=== PATIENT | female | born 1995 | race Caucasian/White ===

== ENCOUNTER 2017-01-05 19:37 | Emergency (ER) | payer SELFPAY ==
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
== END 2017-01-05 20:30 | disposition home or self-care (01) ==
LOC: ER 19:37
DX: S16.1XXA Strain of muscle, fascia and tendon at neck level, initial encounter (principal); Y04.0XXA Assault by unarmed brawl or fight, initial encounter

== ENCOUNTER 2017-01-27 12:18 | Emergency (ER) | payer SELFPAY ==
--- NOTE | 2017-02-06 19:40 | ER ---
ADMIT: 01/27/2017 RM/LOC: ER [facility] MR#: [id number] [facility] [address] [place], [place] [address] LEONARDO MARTINEZ [address] [place] [id number] Emergency Room Report SEX: F AGE: 21 : 1995 DATE: 01/27/2017 HISTORY OF PRESENT ILLNESS: The patient is a 21-year-old, presents to emergency room with vaginal cramping, denies bleeding. She has some dysuria continues in the ER. She says she is about 5 weeks' . She has an appointment with Dr. Damon on . Her last menstrual period was 10/23/2016. REVIEW OF SYSTEMS: Negative. PAST MEDICAL HISTORY: She is a 3, para 1. PAST SURGICAL HISTORY: No surgeries. She did have a vaginal delivery. PHYSICAL EXAMINATION: ABDOMEN: Pretty taut abdomen. VITAL SIGNS: Pretty normal. She measures fundal height about 12 to 14 weeks. GENERAL: She is mildly anxious, but does not seem to be in any acute distress. No bimanual exam was conducted. HEENT: Normal inspection. NECK: Supple. RESPIRATION: No distress. EXTREMITIES: Nontender. SKIN: Good color, oriented x4. Mood and affect are appropriate. DIAGNOSTIC DATA: UA normal. Beta HCG in the 46,423, and her heart tones are 156. CLINICAL IMPRESSION: Discomfort of intrauterine . Advised to follow up with Dr. Damon as per her appointment on . Take prenatals. Keep hydrated. LENI Rodgers / Sharad Delgado MD / patl JOB #: [id number] CC: Sharad Delgado MD, Attending Physician Ashish Joseph, Family Physician
== END 2017-01-27 15:05 | disposition home or self-care (01) ==
LOC: ER 12:18
DX: O99.89 Other specified diseases and conditions complicating pregnancy, childbirth and the puerperium (principal); Z3A.01 Less than 8 weeks gestation of pregnancy

== ENCOUNTER 2017-02-26 00:40 | Emergency (ER) | payer SELFPAY ==
--- NOTE | 2017-02-27 04:09 | ER ---
ADMIT: 02/26/2017 RM/LOC: ER [facility] MR#: [id number] [address] [address] LEONARDO MARTINEZ [address] [place] [id number] Emergency Room Report SEX: F AGE: 21 : 1995 DATE: 02/26/2017 TIME: 0040 Please refer to my T-sheet for complete H and P. HISTORY OF PRESENT ILLNESS: Briefly, the patient is a 21-year-old who comes in with trace of vaginal bleeding after having sex tonight. She has no pain, no cramping. She is 3, para 1-0-1-1. She was just concerned and came in for evaluation. She knows she is O positive on her blood type. PHYSICAL EXAMINATION: VITAL SIGNS: Stable. : Vaginal exam shows a closed cervix. EMERGENCY DEPARTMENT COURSE: We did heart tones, were 140. I reassured her. She is ready for discharge. ASSESSMENT: 1. Postcoital vaginal bleeding, just a trace, most likely secondary to a friable cervix. 2. 19 weeks with good heart tones. She is O-positive and stable. PLAN: Continue care. Stop smoking. Follow up with OB. Foster Gonzales MD/ mo JOB #: [id number] CC: Foster Gonzales MD, Attending Physician
== END 2017-02-26 01:20 | disposition home or self-care (01) ==
LOC: ER 00:40
DX: O20.9 Hemorrhage in early pregnancy, unspecified (principal); O99.512 Diseases of the respiratory system complicating pregnancy, second trimester; J45.909 Unspecified asthma, uncomplicated; O99.332 Smoking (tobacco) complicating pregnancy, second trimester; F17.210 Nicotine dependence, cigarettes, uncomplicated; Z3A.19 19 weeks gestation of pregnancy

== ENCOUNTER 2017-03-04 19:08 | Outpatient (CLI) | payer SELFPAY | END 2017-03-04 21:15 | disposition home or self-care (01) | DX: O47.02 False labor before 37 completed weeks of gestation, second trimester (principal); O99.89 Other specified diseases and conditions complicating pregnancy, childbirth and the puerperium; R10.9 Unspecified abdominal pain; Z3A.20 20 weeks gestation of pregnancy ==

== ENCOUNTER 2017-04-04 21:10 | Outpatient (CLI) | payer MEDICAID | END 2017-04-05 02:50 | disposition home or self-care (01) | LOC: 2LDRP 21:10 → BC 21:10 | DX: O47.02 False labor before 37 completed weeks of gestation, second trimester (principal); Z3A.24 24 weeks gestation of pregnancy ==